=== PATIENT | female | born 1960 | race Caucasian/White ===

== ENCOUNTER → 2016-10-03 | Outpatient (CLI) | payer OTHER ==
[~2016-10-03] MED LIST: CATHETER FLUSH 10 ML SYR IV PRN; IOHEXOL 350 MG/ML 100 ML (OMNIPAQUE 350) VIAL IV ONE; NS 100 ML (IVPB) BAG IV ONE
--- NOTE | 2016-10-03 13:24 | Diagnostic Imaging Report ---
CLINICAL INDICATION: Patient has history of thyroid trouble. Patient complains of raspy/hoarse voice x6 weeks. Patient complains of knot that appears behind right ear that will come and go. Patient states that the knot would drain into her mouth. BB is overlying the area of concern. EXAM: Axial CT scan of the neck soft tissue performed with 75 cc of Omnipaque 350 IV contrast. Coronal reformatted images were created. COMPARISON: Thyroid ultrasound dated 06/19/2016. FINDINGS: There is slightly heterogeneous appearance of the thyroid gland with enlargement on the right thyroid gland. This was noted on the comparison thyroid ultrasound. There is no discrete neck mass seen in the region of the right neck skin marker which is just lateral to the parotid gland. The right parotid gland is slightly heterogeneous and no adjacent fat stranding. This may be related to sialosis. There are no stones or mass seen. The bilateral submandibular glands also demonstrate mild heterogeneity but no adjacent fat stranding or mass seen. The parotid gland shows no significant abnormality. Of note, the glottis is closed which limits evaluation for vocal cord abnormality on this exam. Otherwise, the nasopharynx, oropharynx, hypopharynx, and laryngeal structures are otherwise relatively symmetric and unremarkable. There is no significant neck lymphadenopathy. There is moderate to severe emphysema involving the visualized upper lung villagomez. There are multiple spiculated nodular areas scattered within both lungs. The largest measures roughly 7 mm in the right upper lobe. Mildly prominent lymph node in the pretracheal region is seen which measures roughly 10 mm x 14 mm. There is a small area of mucosal thickening involving left ethmoid sinus. There is mild mucosal thickening involving the right maxillary sinus and minimal amount involving the left maxillary sinus. Cervical spine shows no significant abnormality. Visualized intracranial structures are grossly unremarkable. IMPRESSION: 1: There is no significant mass seen adjacent to the right BB marker in the region of the right parotid gland. 2: The vocal cords are closed limiting evaluation for underlying abnormality. There is no gross significant abnormality of the larynx as visualized. 3: The right parotid gland and bilateral submandibular glands are slightly heterogeneous with no mass or adjacent fat stranding seen. 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 4: Moderate to severe emphysema and several lung nodules. There are also mildly prominent mediastinal lymph nodes. Nonemergent chest CT scan is suggested for better evaluation. Dictated by: Dictated on workstation # [id number]
== END ==
LOC: RAD 12:12
PROVIDERS: ATTEND Nurse Practitioner Family
DX: R49.0 Dysphonia (principal); R68.89 Other general symptoms and signs; E05.00 Thyrotoxicosis with diffuse goiter without thyrotoxic crisis or storm; Z72.0 Tobacco use
CPT/HCPCS: 70491

== ENCOUNTER → 2016-10-10 | Outpatient (CLI) | payer OTHER ==
--- NOTE | 2016-10-10 12:22 | Diagnostic Imaging Report ---
PROCEDURE: CT chest without contrast. TECHNIQUE: Multiple contiguous axial images were obtained through the chest without the use of intravenous contrast. INDICATION: Abnormal CT neck exam. FINDINGS: There are no prior CT chest examinations available for comparison. However, the CT neck exam performed on 10/03/2016 did note [id number] emphysema and several lung nodules. There was also a mildly prominent mediastinal node. On this exam, those findings are again evident and do not seem to have changed significantly. The 7 mm nodule in the right upper lung is again seen and no different (image 20/65). There is also a noncalcified nodule in the right middle lobe measuring 7 mm (image 35/65). No other parenchymal lung mass is identified. The 9 x 14 mm pretracheal lymph node seen previously is again visualized and stable. There are a few other lymph nodes evident, although none measure greater than than 1 cm. The emphysematous changes seen previously are again noted. There is no sign of failure, pneumonia, or pleural effusion to suggest an acute abnormality. The heart is enlarged, and there are coronary artery calcifications evident. The aorta is not abnormally dilated. The thyroid gland was not well visualized. There is no obvious breast mass. The sections through the upper abdomen fail to show any sign of an acute abnormality. The spleen was not seen in its entirety, but the spleen does seem prominent. The bone windows are unremarkable for a fracture or for a destructive lesion. IMPRESSION: 1. There are small benign-appearing nodules in the right lung and a borderline enlarged pretracheal lymph node. These findings are of uncertain etiology, although unlikely related to a malignant neoplastic process. Even so, I would recommend that a short-term (three-month) followup CT chest exam be obtained for further study. 2. There are emphysematous changes involving both lungs, but there is no evidence for an acute cardiopulmonary abnormality. 3. There is cardiomegaly and coronary artery disease. Dictated by: Dictated on workstation # [id number]
== END ==
LOC: RAD 10:09
PROVIDERS: ATTEND Nurse Practitioner Family
DX: R91.8 Other nonspecific abnormal finding of lung field (principal)
CPT/HCPCS: 71250

== ENCOUNTER → 2016-12-04 | Outpatient (CLI) | payer BC ==
[~2016-12-04] MED LIST changes: -CATHETER FLUSH 10 ML SYR IV PRN; -IOHEXOL 350 MG/ML 100 ML (OMNIPAQUE 350) VIAL IV ONE; -NS 100 ML (IVPB) BAG IV ONE; +REGADENOSON 0.4 MG/5 ML SYR (LEXISCAN) IV ONE
[2016-12-04] MEDS: CATHETER FLUSH 10 ML SYR IV PRN ×2 (12:26→13:47)
[2016-12-04 13:41] VITALS: BP 193/91
--- NOTE | 2016-12-05 10:18 | STRESS TEST ---
DATE OF SERVICE: RESTING AND POST REGADENOSON TECHNETIUM-99M TETROFOSMIN SPECT CT IMAGING DATE OF PROCEDURE: 12/04/2016. ORDERING PHYSICIAN: Niya Perea APRN PRIMARY PHYSICIAN: Dr. Roth. OTHER PHYSICIAN: Leny Castro APRN CLINICAL DIAGNOSES: Cardiomegaly, exertional shortness of breath. Baseline images were carried out after injection of 10.11 mCi of technetium-99m tetrofosmin. This was followed by 0.4 mg of radio adenosine and 27.5 mCi of technetium-99m tetrofosmin for stress imaging. The electrocardiogram showed sinus rhythm, mostly sinus tachycardia, throughout the study. There is nonspecific ST abnormality throughout the study. The electrocardiogram did not change significantly with the radio adenosine infusion. Overall, the patient tolerated the procedure well. Review of images at rest and following stress does not indicate any significant perfusion defects consistent with significant myocardial ischemia or infarction. Gated images show normal left ventricular systolic function with normal regional wall motion. Left ventricular ejection fraction is calculated to be 71%. Left ventricular end-diastolic volume is 43 mL. CONCLUSIONS: 1. No evidence of significant myocardial ischemia or infarction in the study. 2. Normal regional wall motion. 3. Normal global left ventricular systolic function with a calculated ejection fraction of 71%. Job ID: [id number] DocumentID: [id number] Dictated Date: 12/05/2016 09:18:10 Quality Audit Representative Date: 12/05/2016 09:38:15 Dictated By: ERIK VELA MD, MA, FACP, FACC, MTDD
--- NOTE | 2016-12-06 09:31 | ECHOCARDIOGRAPHY REPORT ---
DATE OF SERVICE: 12/04/16 MEASUREMENTS: LV diameter diastolic 4.8. IVS thickness diastolic 1. LVPW thickness diastolic 1. Aortic root 3. Left atrium 4.3. DESCRIPTION: Two dimensional echocardiography shows normal left ventricular systolic function with normal regional wall motion. Aortic, mitral and tricuspid valve leaflets show good leaflet excursion. There is no significant pericardial effusion. Doppler imaging shows mild mitral and tricuspid regurgitation. There is no Doppler evidence of any significant valvular stenosis. Left ventricular ejection fraction is estimated to be approximately 60-65%. Mitral inflow is consistent with grade 2 diastolic dysfunction of the left ventricle. There is no evidence of significant intracardiac shunt on this transthoracic echocardiographic study. Inferior vena cava appears to be of normal size and exhibits normal inspiratory collapse. CONCLUSION: 1. Normal left ventricular systolic function with an ejection fraction of approximately 65%. 2. Mild mitral and tricuspid regurgitation. 3. Moderate diastolic dysfunction left ventricle. 4. Pulmonary artery systolic pressure is estimated to be approximately 40 mmHg. Job ID: [id number] DocumentID: [id number] Dictated Date: 12/06/2016 07:53:09 Art Objects Supervisor Date: 12/06/2016 08:54:32 Dictated By: ERIK VELA MD, MA, FACP, FACC, MTDD
== END ==
LOC: CARD 11:40
PROVIDERS: ATTEND Nurse Practitioner Family
DX: I51.7 Cardiomegaly (principal); R06.09 Other forms of dyspnea
CPT/HCPCS: 78452; 93017; 93306

== ENCOUNTER → 2017-02-27 | Outpatient (CLI) | payer BC ==
[2017-02-27 17:13] LABS: BASOPHILS % (AUTO) 0 % (0-10); EOSINOPHILS # (AUTO) 0.1 10^3/uL (0.0-0.3); EOSINOPHILS % (AUTO) 1 % (0-10); LYMPHOCYTES % (AUTO) 33 % (12-44); MEAN CORPUSCULAR HEMOGLOBIN 30 PG (25-34); MEAN CORPUSCULAR HGB CONC 34 G/DL (32-36); MEAN CORPUSCULAR VOLUME 89 FL (80-99); MEAN PLATELET VOLUME 11.6 FL (7.4-10.4); MONOCYTES # (AUTO) 0.6 X 10^3 (0.0-1.0); MONOCYTES % (AUTO) 10 % (0-12); NEUTROPHILS # (AUTO) 3.4 X 10^3 (1.8-7.8); NEUTROPHILS % (AUTO) 56 % (42-75); PLATELET COUNT 167 10^3/uL (130-400); RED BLOOD COUNT 4.41 10^6/uL (4.35-5.85); RED CELL DISTRIBUTION WIDTH 12.1 % (10.0-14.5); WHITE BLOOD COUNT 6.1 10^3/uL (4.3-11.0)
[2017-02-27 17:22] LABS: ALANINE AMINOTRANSFERASE 13 U/L (0-55); ALBUMIN 3.9 GM/DL (3.2-4.5); ANION GAP 10 MMOL/L (5-14); ASPARTATE AMINO TRANSFERASE 14 U/L (5-34); BILIRUBIN,TOTAL 0.4 MG/DL (0.1-1.0); BLOOD UREA NITROGEN 9 MG/DL (7-18); BUN/CREATININE RATIO 14; CALCIUM 9.6 MG/DL (8.5-10.1); CARBON DIOXIDE 25 MMOL/L (21-32); CHLORIDE 101 MMOL/L (98-107); CREATININE SERUM 0.65 MG/DL (0.60-1.30); GFR ESTIMATED > 60; GLUCOSE 86 MG/DL (70-105); POTASSIUM 3.4 MMOL/L (3.6-5.0); SODIUM 136 MMOL/L (135-145); TOTAL PROTEIN 7.2 GM/DL (6.4-8.2)
== END ==
LOC: LAB 16:41
PROVIDERS: ATTEND Internal Medicine Endocrinology, Diabetes & Metabolism
DX: E05.00 Thyrotoxicosis with diffuse goiter without thyrotoxic crisis or storm (principal)
CPT/HCPCS: 36415; 80053; 84439; 84443; 84480; 85025